=== PATIENT | female | born 1965 | race Caucasian/White ===

== ENCOUNTER 2020-03-29 18:30 | Emergency (ER) | payer OTHER ==
[~2020-03-29] VITALS: Ht 170.1 cm; Wt 45.4 kg
[~2020-03-29 18:30] MED LIST: MOTRIN600 MG PO; MULTIVITAMIN FO1 CAP PO; NKHM; PERCOCET 325 MG1 TA2 PO; PREV ADMIT HOME MEDS
[2020-03-29] MEDS ORDERED: CEPHALEXIN500 M1 PO (22:13)
[2020-03-29] MEDS ORDERED: IBU800 MG PO (22:13)
[2020-03-29] MEDS ORDERED: ANTIBIOTIC28.4 GM T (22:13)
== END 2020-03-29 22:30 | disposition home or self-care (01) ==
LOC: ED 18:30
DX: S01.81XA Laceration without foreign body of other part of head, initial encounter (principal); S63.502A Unspecified sprain of left wrist, initial encounter; Z23 Encounter for immunization; Z79.899 Other long term (current) drug therapy; W19.XXXA Unspecified fall, initial encounter; Y93.89 Activity, other specified; Y92.89 Other specified places as the place of occurrence of the external cause; Y99.8 Other external cause status

== ENCOUNTER → 2022-02-13 | Outpatient (CLI) | payer OTHER ==
[~2022-02-13] MED LIST changes: +ANTIBIOTIC28.4 GM T; +CEPHALEXIN500 M1 PO; +IBU800 MG PO
== END | disposition home or self-care (01) ==
LOC: COVID19 08:47
PROVIDERS: ATTEND Internal Medicine
DX: U07.1 COVID-19 (principal)